=== PATIENT | female | born 1975 | race Caucasian/White ===

== ENCOUNTER 2016-08-08 12:46 | Emergency (ER) | payer SELFPAY ==
[2016-08-08 13:05] VITALS: BP 150/90; PULSE 115; RESP 14; TEMP 97.5; O2SAT 96
--- NOTE | 2016-08-08 13:49 | EDPHY ---
H & P Time Seen by Provider: 08/08/16 13:00 Smoking Status: Never smoked Constitutional: Initial Vital Signs Temperature (C) 36.4 C 08/08/16 13:00 Heart Rate 115 H 08/08/16 13:00 Respiratory Rate 14 08/08/16 13:00 Blood Pressure 150/90 H 08/08/16 13:00 O2 Sat (%) 96 08/08/16 13:00 O2 Delivery Mode Room Air Allergies/Adverse Reactions: amoxicillin Allergy (Verified 08/08/16 13:05) hydrocodone Allergy (Verified 08/08/16 13:05) MDM/Departure - Depart Disposition: Home, Routine, Self-Care Clinical Impression: Right wrist sprain Qualifiers: Encounter type: initial encounter Qualifier Code: (S63.501A) Unspecified sprain of right wrist, initial encounter Condition: Good Instructions: Wrist Sprain (ED) Additional Instructions: Ibuprofen 600mg every 8 hours for pain and swelling. Wrist splint for comfort and support. Return if you develop numbness or tingling in your fingers or if you feel worse in any way. Stand Alone Forms: Narcotic Guidelines Referrals: Shakeel Palma MD [Medical Doctor] - 2-3 days without fail (Orthopedic surgeon on-call)
--- NOTE | 2016-08-08 15:22 | DX ---
Right Wrist Series, Four Views History: Pain following trauma. Fell over her dog. Findings: Osseous structures are intact without fracture. Joint spaces are normal. Soft tissues are u nremarkable. Impression: Normal right wrist series. If symptoms persist after 7 to 10 days, consider repeat imaging to rule out possible occult fracture.
--- NOTE | 2016-08-08 15:26 | UCPHY ---
H & P Patient Type: Established Smoking Status: Never smoked Time Seen by Provider: 08/08/16 13:00 HPI/ROS: CHIEF COMPLAINT: Right wrist injury HISTORY OF PRESENT ILLNESS: 41-year-old female presents to urgent care by private vehicle with right wrist injury. The patient states earlier today she was going down the stairs with her dog and her dog stopped on the last stair and the patient fell injuring her right wrist. She did not hit her head or lose consciousness. The incident happened at home. It happened just prior to arrival. She is right-hand dominant. She has pain with range of motion. She denies any other trauma or injury. ROS: Denies numbness or tingling in her fingers, pain in her right elbow or shoulder. (Scarlet Pringle) Past Medical/Surgical History: Orthopedic injuries (Scarlet Pringle) Social History: and lives in [place] (Scarlet Pringle) Physical Exam: Examination of the right wrist reveals swelling over the dorsal, distal aspect of the right forearm overlying distal radius. She has reproducible pain with palpation over the distal radius. She also has pain with palpation in the anatomic snuffbox of the right wrist. No palpable crepitus or other bony abnormality. Nontender to palpate in the right elbow or shoulder. Normal sensation to light touch with normal 2 point discrimination. No abrasion or other puncture wound. There is resolving ecchymosis noted to the dorsal aspect of her right hand which she states was from a previous injury week and half ago. Nontender to palpate anywhere else in her right hand. (Scarlet Pringle) Constitutional: Initial Vital Signs Temperature (C) 36.4 C 08/08/16 13:00 Heart Rate 115 H 08/08/16 13:00 Respiratory Rate 14 08/08/16 13:00 Blood Pressure 150/90 H 08/08/16 13:00 O2 Sat (%) 96 08/08/16 13:00 O2 Delivery Mode Room Air Allergies/Adverse Reactions: amoxicillin Allergy (Verified 08/08/16 13:05) hydrocodone Allergy (Verified 08/08/16 13:05) MDM/Departure - MDM Diagnostics: Right wrist x-rays reveal no fractures. This is reviewed by myself the PAC system. Radiology interpretation to follow appeared (Scarlet Pringle) Procedures: Patient was placed in a Velcro thumb spica splint and examined post application in good placement with normal [employer]. (Scarlet Pringle) ED Course/Re-evaluation: 41-year-old female presents to urgent care with right wrist injury. X-rays reveal no fractures. The patient however does have pain with palpation in the anatomic snuffbox and therefore was placed in a Velcro thumb spica splint and given orthopedic referral. The nurse had recognized the patient as presenting to Urgent Care on another date under a different name. Because the patient was unable to provide photo identification, explained to the patient that she would not receive narcotic medication. Patient verbalized understanding. (Scarlet Pringle) The patient wasevaluatedand managed by themidlevel provider. Idiscussed the patient's presentation and course with thephysicianassistantor nurse practitionerand agree with theevaluation. My co-signature indicates that I have reviewed this chart and I agree with the findings and plan of care as documented. I am the secondary supervisingphysician. (Maricruz Herbert) - Depart Disposition: Home, Routine, Self-Care Clinical Impression: Right wrist sprain Qualifiers: Encounter type: initial encounter Qualifier Code: (S63.501A) Unspecified sprain of right wrist, initial encounter Condition: Good Instructions: Wrist Sprain (ED) Additional Instructions: Ibuprofen 600mg every 8 hours for pain and swelling. Wrist splint for comfort and support. Return if you develop numbness or tingling in your fingers or if you feel worse in any way. Stand Alone Forms: Narcotic Guidelines Referrals: Shakeel Palma MD [Medical Doctor] - 2-3 days without fail (Orthopedic surgeon on-call) - PQRS PQRS Measurement: Not applicable (Scarlet Pringle)
== END 2016-08-08 14:05 | disposition home or self-care (01) ==
LOC: CED 12:46
DX: S63.501A Unspecified sprain of right wrist, initial encounter (principal); W10.8XXA Fall (on) (from) other stairs and steps, initial encounter; W54.8XXA Other contact with dog, initial encounter; Y92.019 Unspecified place in single-family (private) house as the place of occurrence of the external cause; Y99.8 Other external cause status
CPT/HCPCS: 73110-PO; 99214-PO; G0463-PO